=== PATIENT | female | born 1975 | race African-American/Black ===

== ENCOUNTER 2017-08-31 11:17 | Observation (INO) ==
[2017-09-01 11:52] VITALS: BP 108/58
== END 2017-09-01 14:50 | disposition home or self-care (01) ==
LOC: EDUNIT# → EDBD → N.ED 11:17 → INTOOBSV 14:31 → N.EDINP 14:31 → N.2E 17:37
PROVIDERS: ADMIT Internal Medicine; ATTEND Internal Medicine